=== PATIENT | female | born 1980 ===

== ENCOUNTER 2016-11-29 09:13 | Emergency (ER) | payer MEDICAID, OTHER ==
[2016-11-29 09:48] VITALS: BMI 30.2
== END 2016-11-29 14:30 | disposition home or self-care (01) ==
LOC: H.EROB2 09:13 → H.L&D 09:41 → H.EROB2 14:30
DX: O47.1 False labor at or after 37 completed weeks of gestation (principal); Z3A.39 39 weeks gestation of pregnancy

== ENCOUNTER 2016-11-30 03:19 | Inpatient (IN) | payer MEDICAID, SELFPAY ==
[2016-11-29 09:48] VITALS: BMI 30.2
[2016-11-30] MEDS ORDERED: Lactated Ringer's 1,000 ML IV SCH ×2 (04:17→04:30)
[2016-11-30] MEDS ORDERED: Lidocaine 1% Inj (20ml) ONE (04:30)
[2016-11-30 04:53] VITALS: BP 147/82; PULSE 64; RESP 20; O2SAT 100
[2016-11-30 05:27] LABS: BASO % 0.4 % (0.0-2.0); EOS # 0.1 K/uL (0.0-0.7); EOS % 0.6 % (0.0-4.0); HEMATOCRIT 36.6 % (34.0-47.0); LYMPH # 2.1 K/uL (1.0-4.3); LYMPH % 19.1 % (20.0-40.0); MEAN CELL VOLUME 83.3 fl (81.0-99.0); MEAN CORPUSCULAR HEMOGLOBIN 27.3 pg (27.0-31.0); MEAN CORPUSCULAR HGB CONC 32.8 g/dL (33.0-37.0); MEAN PLATELET VOLUME 10.3 fl (7.2-11.7); MONO # 0.7 K/uL (0.0-0.8); NEUT # 8.2 K/uL (1.8-7.0); NEUT % 73.9 % (50.0-75.0); NRBC % 0.1 % (0.0-0.0); RED CELL DISTRIBUTION WIDTH 14.3 % (11.5-14.5); WHITE BLOOD COUNT 11.1 K/uL (4.8-10.8)
[2016-11-30] MEDS ORDERED: Fentanyl/Bupivacaine HCl 250 ML EPI ONE (05:54)
[2016-11-30] MEDS ORDERED: Bupivacaine HCl 0.25% PF (10 ml) Inj ONE (05:55)
--- NOTE | 2016-11-30 06:44 | OBHP ---
Datetime: 11/30/2016 04:08 IP Adm Impression: Term, intrauterine ; Active labor; Intact Membranes IP Admit Plan: Admit to unit; Initiate labor protocol Admit Comment, IP Provider: 36 y/o @ 40.0 wks presents with uterine contractions. Reports contr actions started earlier yesterday but have worsened. Reports pain is 10/10 and occurs every 3-4 minut es. Also reports an episode of vomiting. No other complaints. Denies VB/LOF and reports good FM. Clinic: [facility]: 1998, spontaneous miscarriage 12/2015 : GBS: neg ABO-Rh: A+, Ab neg, HBsAg neg, HIV neg, RPR neg, Rubella immune Growth U/S on 11/13 EFW of 6lb 13 oz PMHx: none MEDS: PNVs daily PsurgHx: none ALL: penicillin (rash) Social: denies ETOH, drugs, Tobacco FamilyHx: noncontributory A/P: 36 y/o @ 40.0 weeks IUP admitted for active labor. -admit to unit -CBC, type and screen -1L LR Bolus -125 Mx fluids -Zofran 4mg IVP -case discussed with Dr. Leighton Velazco MD PGY1 @ 4:15am The patient was seen with the resident I agree with note patient to be in active labor vertex pres entation and pelvis estimated weight 7-1/2 pounds to spit normal vaginal delivery Pelvic Type - PN: Adequate Extremities - PN: Normal Abdomen - PN: Normal Back - PN: Normal Breast - PN: Normal Lungs - PN: Normal Heart - PN: Normal Thyroid - PN: Normal Neurologic - PN: Normal HEENT - PN: Normal General - PN: Normal Presentation-Admit: Vertex IP Fetus A Comments: tachycardia (169-177bpm) FHR - Baseline A Provider: 169 Membranes, Provider: Intact Contraction Comments Provider: yes Pool Provider: Negative EGA AdmitDate IP: 40.0 Vital Signs Provider: Reviewed IP Chief Complaint: Uterine contractions NICHD Variability Prov Fetus A: Moderate 6-25bpm NICHD Accel Fetus A IP Provider: 15X15 FHR Category Provider Fetus A: Category I NICHD Decel Fetus A IP Provider: None Dilatation, Provider: 4 Effacement, Provider: 80 Station, Provider: -2 Genitourinary Exam: Normal DTRs - PN: Normal Datetime: 11/29/2016 11:13 Nitrazine Provider: Negative Ferning Provider: Negative IP Hx Assessment: The History has been Reviewed and is Current
--- NOTE | 2016-11-30 13:12 | OBPN ---
Datetime: 11/30/2016 12:57 IP Progress Impression: Normal progression of labor IP Procedures: Artificial ROM IP Progress Plan: Continue present management Membranes, Provider: Ruptured Amniotic Fluid Color, Provider: Meconium, Heavy FHR - Baseline A Provider: 130 IP Progress Note Comment: s: no c/o i: 40 wk/labor/thick meconium p: expectant VD. NICHD Accel Fetus A IP Provider: 15X15 FHR Category Provider Fetus A: Category I NICHD Variability Prov Fetus A: Moderate 6-25bpm Dilatation, Provider: 10 Effacement, Provider: 100 Station, Provider: -1 NICHD Decel Fetus A IP Provider: None Datetime: 11/30/2016 10:09 Vital Signs Provider: Within Normal Limits Datetime: 11/30/2016 04:08 Pool Provider: Negative Contraction Comments Provider: yes IP Fetus A Comments: tachycardia (169-177bpm) Presentation-Admit: Vertex Datetime: 11/29/2016 11:13 Nitrazine Provider: Negative Ferning Provider: Negative
[2016-11-30] MEDS ORDERED: Benzocaine/Menthol SPRAY TOP PRN (14:42)
[2016-11-30] MEDS ORDERED: Oxycodone/Acetaminophen 5/325 mg Tab PO PRN (14:42)
[2016-11-30] MEDS ORDERED: Oxytocin 30 units/LR 500ML 30 U/500 ML BAG IV SCH (14:42)
[2016-11-30 15:07] VITALS: TEMP 98.2
--- NOTE | 2016-11-30 15:18 | OBDS ---
MATERNAL INFORMATION Provider Comments: Delivery Note Dx: 40wk preg in active labor; thick meconium Anesth: epidural- dr kyin ob:orossmd jed proced: ; repair of 1s deg perineal lacertion findings: viable female; 9_9 no complications neon to nbn path: none LABOR SUMMARY EDC: 11/30/2016 00:00 No. Babies in Womb: 1 LABOR INFORMATION Complete Dilatation: 11/30/2016 10:15 Group B Beta Strep: Negative MEMBRANES Membranes Rupture Method: Artificial Amniotic Fluid Color: Heavy Meconium Amniotic Fluid Amount: Moderate Amniotic Fluid Odor: None PRESENTATION/POSITION BABY A Presentation: Cephalic
[2016-12-01 06:43] LABS: BASO % 0.3 % (0.0-2.0); EOS # 0.1 K/uL (0.0-0.7); EOS % 0.6 % (0.0-4.0); LYMPH # 1.8 K/uL (1.0-4.3); LYMPH % 17.2 % (20.0-40.0); MEAN CELL VOLUME 85.1 fl (81.0-99.0); MEAN CORPUSCULAR HEMOGLOBIN 27.8 pg (27.0-31.0); MEAN CORPUSCULAR HGB CONC 32.7 g/dL (33.0-37.0); MEAN PLATELET VOLUME 9.6 fl (7.2-11.7); MONO # 0.6 K/uL (0.0-0.8); MONO % 5.3 % (0.0-10.0); NEUT % 76.6 % (50.0-75.0); NRBC % 0.1 % (0.0-0.0); RED CELL DISTRIBUTION WIDTH 14.2 % (11.5-14.5); WHITE BLOOD COUNT 10.5 K/uL (4.8-10.8)
--- NOTE | 2016-12-01 15:44 | OBPPN ---
Datetime: 12/01/2016 05:48 PP Pain Prov: Within normal limits PP Nausea Prov: Denies PP Flatus Prov: Yes PP BM Prov: No PP Breasts Prov: Normal PP Heart Prov: Normal PP Lungs Prov: Normal PP Abdomen/Uterus Prov: Normal PP Lochia Prov: Normal PP Vulva/Perineum Prov: Normal PP CVA Tenderness Prov: Normal PP Extremities Prov: Normal PP C/S Incision Prov: Not Applicable PP Progress Prov: Normal PP Comments Phys Exam Prov: ABD: +BS, soft, minor tenderness to palpation. ND. Fundus is firm at lev el of umbilicus. EXT: calves NT, neg Homans B/L. PP Impression Prov: Normal progression PP Plan Prov: Continue present management PP Progress Note Prov: S: pt seen and examined at bedside this morning. No acute events overnight. P t reports minimal pain controlled with Ibuprofen. OOB/ambulating w/o difficulty. Breast and bottle fe eding w/o difficulty. Tolerating PO intake well. Bleeding has substantially decreased. +BM. Denies fe aric/chills, CP/SOB, N/V/D, urinary symtpoms, calf pain. A/P: 36 y/o s/p on 11/30 doing well on PPD#1. -continue current management -Ibuprofen 600mg PO PRN pain -OOB/ambulate - encouraged -Anticipate DC 12/02/2016 Kelvin Velazco MD PGY1 @5:50am Addendum by Dr. Pichardo: I have evaluated the patient independently and I agree with the above. THe patient is stable, continue routine orders Vital Signs Provider PP: Reviewed; Within Normal Limits
--- NOTE | 2016-12-02 11:51 | OBDCSUM ---
Datetime: 12/02/2016 06:23 Discharged to, Provider: Home Follow up at, Provider: [facility] Disch Instr Activity: Normal activity Disch Instr Diet: Regular Discharge Instructions, Provider: Routine instructions given Discharge Diagnosis, Provider: Term Delivered Discharge Time: 12/02/2016 06:30 Follow up in weeks, Provider: 6 weeks Disch Referrals: None Contraception discussed, Prov: Yes Disch Activity Restrictions: No sexual activity; Nothing in vagina - [place], tampons, douche Contraception after Delivery: Foam/Condoms
--- NOTE | 2016-12-02 11:51 | OBPPN ---
Datetime: 12/02/2016 06:21 PP Pain Prov: Within normal limits PP Nausea Prov: Denies PP Flatus Prov: Yes PP BM Prov: Yes PP Breasts Prov: Normal PP Heart Prov: Normal PP Lungs Prov: Normal PP Abdomen/Uterus Prov: Normal PP Lochia Prov: Normal PP Vulva/Perineum Prov: Normal PP CVA Tenderness Prov: Normal PP Extremities Prov: Normal PP C/S Incision Prov: Not Applicable PP Progress Prov: Normal PP Comments Phys Exam Prov: ABD: +BS, soft, NT/ND. Fundus firm at level of umbilicus PP Impression Prov: Normal progression PP Plan Prov: Discharge PP Progress Note Prov: S: pt seen and examined at bedside this morning. No acute events overnight. P t reports minimal pain controlled with Ibuprofen. OOB/ambulating w/o difficulty. Breast and bottle fe eding w/o difficulty. Tolerating PO intake well. Bleeding has substantially decreased. +BM. Denies fe aric/chills, CP/SOB, N/V/D, urinary symtpoms, calf pain. A/P: 36 y/o now s/p on 11/30 doing well on PPD#2. -DC today -Ibuprofen 600mg PO PRN pain -OOB/ambulate - encouraged -nothing per vagina -f/u [facility] in 6 weeks Kelvin Velazco MD PGY1 @6:22am Addendum by Dr.. Pichardo: Patient seen and examined independently and I agree with the above. Patien t to be discharged today, discharge instructions reviewed Vital Signs Provider PP: Reviewed; Within Normal Limits
== END 2016-12-02 14:15 | disposition home or self-care (01) | DRG 373 ==
LOC: H.EROB2 03:19 → H.L&D 04:17 → H.OB/GYN 17:00
PROVIDERS: ADMIT Obstetrics & Gynecology Gynecology; ATTEND Obstetrics & Gynecology Gynecology
PROC: 10E0XZZ Delivery of Products of Conception, External Approach (ICD-10-PCS; principal; 2016-11-30)
PROC: 0HQ9XZZ Repair Perineum Skin, External Approach (ICD-10-PCS; 2016-11-30)
PROC: 4A1HXCZ Monitoring of Products of Conception, Cardiac Rate, External Approach (ICD-10-PCS; 2016-11-30)
DX: O76 Abnormality in fetal heart rate and rhythm complicating labor and delivery (principal); O77.0 Labor and delivery complicated by meconium in amniotic fluid; Z37.0 Single live birth; Z3A.40 40 weeks gestation of pregnancy; O70.0 First degree perineal laceration during delivery